=== PATIENT | male | born 2000 | race Caucasian/White ===

== ENCOUNTER 2022-03-30 11:52 | Emergency (ER) | payer OTHER ==
[~2022-03-30] VITALS: Ht 172.7 cm; Wt 79.8 kg
[2022-03-30 12:03] VITALS: BP 132/71
--- NOTE | 2022-03-30 12:06 | NUR ---
PT SENT TO LOBBY TO WAIT FOR MSE.
[2022-03-30] MEDS ORDERED: CYCL-711 PO (12:35)
[2022-03-30] MEDS ORDERED: IBUP-2213 PO (12:35)
--- NOTE | 2022-03-30 13:12 | NUR ---
Patient discharged with v/s stable. Written and verbal after care instructions ABOUT HIP PAIN given and explained. Patient alert, oriented and verbalized understanding of instructions. Ambulatory with steady gait. All questions addressed prior to discharge. ID band removed. Patient advised to follow up with PMD. Rx of FLEXERIL AND IBUPROFEN given. Patient educated on indication of medication including possible reaction and side effects. Opportunity to ask questions provided and answered.
== END 2022-03-30 13:12 | disposition home or self-care (01) ==
LOC: MED 11:52
DX: M25.552 Pain in left hip (principal); R03.0 Elevated blood-pressure reading, without diagnosis of hypertension; Z79.899 Other long term (current) drug therapy
CPT/HCPCS: 99283